=== PATIENT | female | born 1945 | race Caucasian/White ===

== ENCOUNTER → 2016-12-18 | Outpatient (CLI) | payer OTHER ==
[~2016-12-18] MED LIST: ANTARA130 MG PO; B12INJ PO; BENICAR HCT 201 EACH PO; LIPITOR10 MG PO; TEGRETOL XR200 MG PO; VITAMIN D1000 UNI1 PO
== END ==
LOC: MRI 07:47 → LAB 08:55 → MRI 11:55 → LAB 16:43
DX: R47.02 Dysphasia (principal); R51 Headache

== ENCOUNTER → 2017-04-20 | Outpatient (CLI) | payer OTHER | LOC: RAD 10:52 | DX: Z12.31 Encounter for screening mammogram for malignant neoplasm of breast (principal) ==